=== PATIENT | male | born 1990 | race Caucasian/White ===

== ENCOUNTER 2022-08-04 12:35 | Emergency (ER) | payer OTHER, SELFPAY ==
--- NOTE | ~2022-08-04 | XR_ITS ---
XR lumbar spine 2-3V 08/04/2022 13:20 Indication: Status post fall. Low back pain. Procedure: 3 views lumbar spine Comparison: No prior studies for comparison. Findings: There is disc narrowing at L5-S1. There is grade 1 spondylolisthesis at L5-S1. Vertebral tatyana dy heights are maintained. Pedicles are intact. Sacral foramen are symmetric. Impression: 1: Mild lumbar spondylosis with grade 1 spondylolisthesis at L5-S1 secondary to bilateral spondylolys is. Reviewed, dictated and finalized at location B. [employer] Impression: 1: Mild lumbar spondylosis with grade 1 spondylolisthesis at L5-S1 secondary to bilateral spondylolysis.
--- NOTE | ~2022-08-04 | XR_ITS ---
EXAMINATION: XR sacrum coccyx min 2V DATE: 08/04/2022 13:22 INDICATION: Sacrococcygeal injury. Fall. TECHNIQUE: 3 views of the sacrum and coccyx were obtained. COMPARISON: None. FINDINGS: There is an oblique fracture of S5 segment. The inferior fracture fragment demonstrates 2 m m anterior displacement. The sacroiliac joints are normal. IMPRESSION: 1. Fracture of the inferior sacrum. Reviewed, dictated and finalized at location A. [employer]
--- NOTE | ~2022-08-04 | XR_ITS ---
EXAMINATION: XR wrist RT min 3V DATE: 08/04/2022 13:23 INDICATION: Right wrist pain and swelling. Fall. TECHNIQUE: 3 views of right wrist were obtained. COMPARISON: None. FINDINGS: Bone alignment is normal. No acute fracture. There is a fragment of ossification dorsal to the carpus that is well-corticated and likely chronic. Joint spaces are normal. There are linear radi opaque foreign bodies in the soft tissues dorsal to distal first metacarpal. IMPRESSION: 1. Linear radiopaque foreign bodies in the soft tissues dorsal to distal first metacarpal. Reviewed, dictated and finalized at location A. [employer]
[2022-08-04 12:35] VITALS: BP 111/71; PULSE 85; RESP 18; TEMP 36.3; O2SAT 98
--- NOTE | 2022-08-04 13:21 | ED.FALL ---
HPI - Fall General Chief Complaint: Fall Stated Complaint: FELL 12 FT WRIST AND TAILBONE Time Seen by Provider: 08/04/22 12:49 History of Present Illness HPI Narrative: Pt was on top of a piece of equipment about 12 feet above ground and lost balance and fell. Pt struck tailbone on equipment on way to ground. Pt landed on al fours on hard surface. Pt denies LOC or neck or abdominal pain. Pt complains of right wrist and tailbone pain. Related Data Allergies Allergy/AdvReac Type Severity Reaction Status Date / Time No Known Allergies Allergy Verified 08/04/22 12:47 Review of Systems Review of Systems: All systems reviewed & are unremarkable except as noted in HPI and below Exam Const: General: healthy appearing and alert Nutritional Appearance: well nourished Orientation/consciousness: patient oriented x3 Limitations: no limitations HENMT: Head: normal to inspection Eyes: Conjunctivae: conjunctivae normal EOM: EOMs intact bilaterally Neck: Neck: normal visual inspection, no lymphadenopathy and no meningeal signs Other: no midline tenderness Chest: Chest palpation & inspection: normal inspection of the chest Resp: Effort & Inspection: normal respiratory effort Auscultation: clear to auscultation bilaterally Cardio: Rate: regular rate Rhythm: regular rhythm GI: GI Palp: Yes Soft to palpation Auscultation: normal bowel sounds Back/Spine/Pelvis: Other: no midline thoracic or lumbar tenderness, minimal tenderness coccyx Skin: General skin exam: normal color Rashes: no rashes Wounds: no wounds Neuro: General: patient oriented x3, moves all extremities, no meningeal signs, no focal motor deficits and CN's II-XI intact bilaterally Speech: normal speech Extrem: General: normal to inspection, no clubbing, cyanosis or edema and no pedal edema Other: tender distal radius and ulna but minimal swelling Psych: Mental Status: mental status grossly normal Affect: normal affect Attitude: cooperative Course Vital Signs Vital signs: Vital Signs Temperature 97.4 F L 08/04/22 12:35 Pulse Rate 85 08/04/22 12:35 Respiratory Rate 18 08/04/22 12:35 Blood Pressure 111/71 08/04/22 12:35 Pulse Oximetry 98 08/04/22 12:35 Oxygen Delivery Room Air 08/04/22 12:35 Temperature 97.4 F L 08/04/22 12:35 Pulse Rate 82 08/04/22 13:56 Respiratory Rate 16 08/04/22 13:56 Blood Pressure 114/82 08/04/22 13:56 Pulse Oximetry 98 08/04/22 13:56 Oxygen Delivery Room Air 08/04/22 13:56 Discharge Plan Discharge Clinical Impression: Sprain of wrist, right, Fracture, sacrum/coccyx Patient Disposition: Home, Self-Care Condition: Stable Instructions: Antibiotic Form, Sacral Fracture (ED), Wrist Sprain (ED) Prescriptions: New ibuprofen 800 mg tablet 800 mg PO TID Qty: 30 0RF Follow-up/Referrals: UNKNOWN,DOCTOR [Primary Care Provider] - Stand Alone Forms: Work/School Release IP
[2022-08-04 13:56] VITALS: BP 114/82; PULSE 82; RESP 16; O2SAT 98
== END 2022-08-04 14:01 | disposition home or self-care (01) ==
PROVIDERS: Emergency Provider Emergency Medicine
DX: S63.501A Unspecified sprain of right wrist, initial encounter (principal); S32.10XA Unspecified fracture of sacrum, initial encounter for closed fracture; W17.89XA Other fall from one level to another, initial encounter
CPT/HCPCS: 29125; 72100; 72220; 73110; 99284; L3908